=== PATIENT | female | born 1985 | race American Indian/Alaskan Native ===

== ENCOUNTER 2021-01-30 17:42 | Emergency (ER) | payer SELFPAY ==
--- NOTE | 2021-01-30 19:17 | Event Note ---
ED Screening Note Date of service: 01/30/21 Time: 19:15 ED Screening Note: 35-year-old female presents to the emergency room complaining of headache and back pain. Patient states that she was found in her driveway unconscious by a neighbor. Patient reports she has been treated for bronchitis with prednisone Z-Sohan and albuterol inhaler. This initial assessment/diagnostic orders/clinical plan/treatment(s) is/are subject to change based on patients health status, clinical progression and re- assessment by fellow clinical providers in the ED. Further treatment and workup at subsequent clinical providers discretion. Patient/guardian urged not to elope from the ED as their condition may be serious if not clinically assessed and managed. Initial orders include:
[2021-01-30 19:59] LABS: Basophils % (Auto) 0.3 % (0.0-1.8); Eosinophils % (Auto) 0.4 % (0.0-4.3); Hematocrit 34.7 % (30.3-42.9); Hemoglobin 11.7 gm/dl (10.1-14.3); Lymphocytes # (Auto) 1.5 K/mm3 (1.2-5.4); Lymphocytes % (Auto) 18.2 % (13.4-35.0); Mean Corpuscular HGB Conc 34 % (30-34); Mean Corpuscular Volume 88 fl (79-97); Monocytes # (Auto) 0.6 K/mm3 (0.0-0.8); Monocytes % (Auto) 6.8 % (0.0-7.3); Platelet Count 215 K/mm3 (140-440); Red Blood Count 3.93 M/mm3 (3.65-5.03); Red Cell Distribution Width 14.3 % (13.2-15.2)
--- NOTE | 2021-01-30 20:05 | Cat Scan Report ---
CT CHEST WITHOUT CONTRAST INDICATION / CLINICAL INFORMATION: Head pain fall and neck pain. TECHNIQUE: Axial CT images were obtained through the chest without contrast. All CT scans at this location are p erformed using CT dose reduction for ALARA by means of automated exposure control. COMPARISON: None available. FINDINGS: Comparison is of limited diagnostic quality in light of the history of trauma secondary to lack of in travenous contrast HEART: No significant abnormality. THORACIC AORTA: No significant abnormality. MEDIASTINUM and GEETHA: No significant abnormality. LUNGS: No acute air space or interstitial disease. PLEURA: No significant pleural effusion. No pneumothorax. ADDITIONAL FINDINGS: None. UPPER ABDOMEN: No significant abnormality. SKELETAL SYSTEM: No significant abnormality. IMPRESSION: 1. No significant abnormality. Signer Name: Wes Hugo MD Signed: 01/30/2021 8:00 PM Workstation Name: [id number]
--- NOTE | 2021-01-30 20:11 | Cat Scan Report ---
CT head/brain wo con INDICATION / CLINICAL INFORMATION: 35 years Female; Head pain fall. TECHNIQUE: Routine CT head without contrast. All CT scans at this location are performed using CT dos e reduction for ALARA by means of automated exposure control. COMPARISON: None. FINDINGS: BRAIN / INTRACRANIAL CONTENTS: No acute hemorrhage, mass effect, midline shift, hydrocephalus, or acu te, large territorial infarct. No signs of significant atrophy or chronic infarct. No significant whi te matter abnormality seen. CRANIOCERVICAL JUNCTION: No significant abnormality. ORBITS: No significant abnormality of visualized orbits. SINUSES / MASTOIDS: Visualized paranasal sinuses and mastoid air cells are essentially clear. ADDITIONAL FINDINGS: None. IMPRESSION: 1. No focal mass, hemorrhage, hydrocephalus, or acute, large territorial infarct. Signer Name: Luis Miguel Spence MD, III Signed: 01/30/2021 8:06 PM Workstation Name: [id number]3][email or web address]
[2021-01-30 20:14] LABS: Alanine Aminotransferase 104 units/L (7-56); Albumin 4.4 g/dL (3.9-5); BUN/Creatinine Ratio 13; Blood Urea Nitrogen 10 mg/dL (7-17); Calcium 8.6 mg/dL (8.4-10.2); Hemolysis Index 1
[2021-01-30 20:48] LABS: Bacteria,Urine 4+ /HPF (Negative); Bilirubin,Urine NEG (Negative); Blood,Urine NEG (Negative); Color,Urine Yellow (Yellow); Hyaline Casts,Urine 6 /LPF; Mucus,Urine 2+ /HPF; Protein,Urine <15 mg/dL mg/dL (Negative); Urobilinogen,Urine < 2.0 mg/dL (<2.0)
[2021-01-30 20:50] LABS: Amphetamine Screen,Urine Negative; Benzodiazepines Screen,Urine Negative; Cocaine Screen,Urine Negative; Opiate Screen,Urine Negative
[2021-01-30 21:01] LABS: Cannabinoid Screen,Urine Positive; Methadone Screen,Urine Positive
[2021-01-30] MEDS ORDERED: KETOROLAC 30 MG/1 ML INJ IM ONE (21:03)
[2021-01-30] MEDS ORDERED: LIDOCAINE-MPF (1%) 10 MG/1 ML VIAL 5 ML INFILTRATI ONE (21:03)
[2021-01-30] MEDS ORDERED: predniSONE 20 MG TAB PO ONE (21:03)
--- NOTE | 2021-01-30 21:52 | Emergency Department Report ---
ED General Adult HPI - General Chief complaint: Head Injury Stated complaint: DIZZY/DEHYDRATED/LIGHT HEADED Source: patient Mode of arrival: Ambulatory Limitations: No Limitations - History of Present Illness Initial comments: Patient is a 35-year-old white female with a history of chronic iron deficiency anemia who presents to the ED with complaint of acute onset persistent severe low back pain, persistent dry cough with pleuritic chest wall pain, persistent headache and left ear pain for the last 2 days. Patient states that the cough has been persistent and worse especially in the last 24 hours such that prior to arrival in the ED she coughed up so hard that she lost balance and fell down and thought that she had a syncopal episode with no loss of consciousness about 10 hours ago. Patient states that she was recently diagnosed with acute bronchitis by her primary care physician about 24 hours ago and is currently on azithromycin and other cough medications including steroids. Patient denies dizziness, syncope, chest pain, shortness of breath, abdominal pain, dysuria, urinary frequency and urgency, change in vision, loss of consciousness, seizures, numbness and tingling or weakness of lower and upper extremities bilaterally, fever and chills. MD Complaint: Low back pain; pleuritic chest wall pain; dry cough, headache; ear pain -: Sudden, days(s) (3) Location: face, chest, back Radiation: non-radiation Severity scale (0 -10): 10 Quality: aching, sharp Consistency: constant Improves with: none Worsens with: movement Associated Symptoms: denies other symptoms, chest pain (pleuritic chest wall pain), cough (dry), headaches, syncope. denies: confusion, diaphoresis, fever/chills, loss of appetite, malaise, nausea/vomiting, rash, seizure, shortness of breath, weakness, other Treatments Prior to Arrival: none - Related Data Home Medications Medication Instructions Recorded Confirmed Last Taken Methadone HCl [Methadone Intensol] 60 mg PO QDAY 01/30/21 01/30/21 Unknown Previous Rx's Medication Instructions Recorded Last Taken Type Ibuprofen [Motrin] 600 mg PO Q8H PRN #30 tablet 01/30/21 Unknown Rx Ondansetron [Zofran Odt] 4 mg PO Q6HR PRN #15 tab.rapdis 01/30/21 Unknown Rx cephALEXin [Keflex] 500 mg PO Q8HR #30 cap 01/30/21 Unknown Rx Allergies Allergy/AdvReac Type Severity Reaction Status Date / Time iodine AdvReac Anaphylaxis Verified 01/30/21 18:19 ED Review of Systems ROS: Stated complaint: DIZZY/DEHYDRATED/LIGHT HEADED Other details as noted in HPI Constitutional: denies: chills, fever Eyes: denies: eye pain, eye discharge, vision change ENT: ear pain (left ear pain). denies: throat pain Respiratory: cough. denies: shortness of breath, wheezing Cardiovascular: chest pain (Pleuritic chest wall pain). denies: palpitations Endocrine: no symptoms reported Gastrointestinal: denies: abdominal pain, nausea, vomiting, diarrhea Genitourinary: denies: urgency, dysuria, discharge Musculoskeletal: back pain (Low back pain), arthralgia, myalgia. denies: joint swelling Skin: denies: rash, lesions Neurological: headache. denies: weakness, paresthesias Psychiatric: denies: anxiety, depression Hematological/Lymphatic: denies: easy bleeding, easy bruising ED Past Medical Hx - Past Medical History Previous Medical History?: Yes Additional medical history: anemic - 2 transfusions - Surgical History Past Surgical History?: No - Social History Smoking Status: Heavy Tobacco Smoker Substance Use Type: None - Medications Home Medications: Home Medications Medication Instructions Recorded Confirmed Last Taken Type Ibuprofen [Motrin] 600 mg PO Q8H PRN #30 tablet 01/30/21 Unknown Rx Methadone HCl [Methadone Intensol] 60 mg PO QDAY 01/30/21 01/30/21 Unknown History Ondansetron [Zofran Odt] 4 mg PO Q6HR PRN #15 tab.rapdis 01/30/21 Unknown Rx cephALEXin [Keflex] 500 mg PO Q8HR #30 cap 01/30/21 Unknown Rx ED Physical Exam - General Limitations: No Limitations General appearance: alert, in no apparent distress - Head Head exam: Present: atraumatic, normocephalic, normal inspection - Eye Eye exam: Present: normal appearance, PERRL, EOMI Pupils: Present: normal accommodation - ENT ENT exam: Present: normal exam, normal orophraynx, mucous membranes moist, TM's normal bilaterally, normal external ear exam - Neck Neck exam: Present: normal inspection, full ROM - Respiratory Respiratory exam: Present: normal lung sounds bilaterally. Absent: respiratory distress, wheezes, rales, rhonchi, chest wall tenderness, accessory muscle use, prolonged expiratory - Cardiovascular Cardiovascular Exam: Present: normal rhythm, tachycardia, normal heart sounds. Absent: systolic murmur, diastolic murmur, rubs, gallop - GI/Abdominal GI/Abdominal exam: Present: soft, normal bowel sounds. Absent: tenderness, guarding, rebound, hyperactive bowel sounds, hypoactive bowel sounds - Extremities Exam Extremities exam: Present: normal inspection, full ROM, normal capillary refill - Back Exam Back exam: Present: normal inspection, full ROM, tenderness (Palpable l umbosacral paraspinal musculoskeletal tenderness), muscle spasm, paraspinal tenderness - Neurological Exam Neurological exam: Present: alert, oriented X3, CN II-XII intact, normal gait, reflexes normal - Psychiatric Psychiatric exam: Present: normal affect, normal mood, anxious - Skin Skin exam: Present: warm, dry, intact, normal color. Absent: rash ED Course Vital Signs 01/30/21 18:17 Temperature 98.4 F Pulse Rate 101 H Respiratory 20 Rate Blood Pressure 107/77 O2 Sat by Pulse 98 Oximetry ED Medical Decision Making - Lab Data Result diagrams: 01/30/21 19:29 01/30/21 19:29 - Radiology Data Radiology results: report reviewed, [place] [address] Cat Scan Report Signed Patient: JULIO KNOWLES MR#: [id number] : 1985 Acct:[id number] Age/Sex: 35 / F ADM Date: 01/30/21 Loc: ED Attending Dr: Ordering Physician: FAYE RAMOS Date of Service: 01/30/21 Procedure(s): CT head/brain wo con Accession Number(s): [id number] cc: FAYE RAMOS CT head/brain wo con INDICATION / CLINICAL INFORMATION: 35 years Female; Head pain fall. TECHNIQUE: Routine CT head without contrast. All CT scans at this location are performed using CT dose reduction for ALARA by means of automated exposure control. COMPARISON: None. FINDINGS: BRAIN / INTRACRANIAL CONTENTS: No acute hemorrhage, mass effect, midline shift, hydrocephalus, or acute, large territorial infarct. No signs of significant atrophy or chronic infarct. No significant white matter abnormality seen. CRANIOCERVICAL JUNCTION: No significant abnormality. ORBITS: No significant abnormality of visualized orbits. SINUSES / MASTOIDS: Visualized paranasal sinuses and mastoid air cells are essentially clear. ADDITIONAL FINDINGS: None. IMPRESSION: 1. No focal mass, hemorrhage, hydrocephalus, or acute, large territorial infarct. Signer Name: Luis Miguel Spence MD, III Signed: 01/30/2021 8:06 PM Workstation Name: [id number] Transcribed By: HR Dictated By: Luis Miguel Spence MD Electronically Authenticated By: Luis Miguel Spence MD Signed Date/Time: 01/30/212005 DD/ 04 TD/TT: [facility] [address] [place] [address] Cat Scan Report Signed Patient: JULIO KNOWLES MR#: [id number] : 1985 Acct:[id number] Age/Sex: 35 / F ADM Date: 01/30/21 Loc: ED Attending Dr: Ordering Physician: FAYE RAMOS Date of Service: 01/30/21 Procedure(s): CT chest wo con Accession Number(s): [id number] cc: FAYE RAMOS CT CHEST WITHOUT CONTRAST INDICATION / CLINICAL INFORMATION: Head pain fall and neck pain. TECHNIQUE: Axial CT images were obtained through the chest without contrast. All CT scans at this location are performed using CT dose reduction for ALARA by means of automated exposure control. COMPARISON: None available. FINDINGS: Comparison is of limited diagnostic quality in light of the history of trauma secondary to lack of intravenous contrast HEART: No significant abnormality. THORACIC AORTA: No significant abnormality. MEDIASTINUM and GEETHA: No significant abnormality. LUNGS: No acute air space or interstitial disease. PLEURA: No significant pleural effusion. No pneumothorax. ADDITIONAL FINDINGS: None. UPPER ABDOMEN: No significant abnormality. SKELETAL SYSTEM: No significant abnormality. IMPRESSION: 1. No significant abnormality. Signer Name: Wes Hugo MD Signed: 01/30/2021 8:00 PM Workstation Name: [id number] Transcribed By: WG Dictated By: Wes Hugo MD Electronically Authenticated By: Wes Hugo MD Signed Date/Time: 01/30/211999 DD/ 58 TD/TT: Print Cancel Print - Medical Decision Making This is a 35-year-old white female with a history of chronic iron deficiency ane shikha who presents to the ED with complaint of acute onset persistent severe low back pain, persistent dry cough with pleuritic chest wall pain, persistent headache and left ear pain for the last 2 days. Patient states that the cough has been persistent and worse especially in the last 24 hours such that prior to arrival in the ED she coughed up so hard that she lost balance and fell down and thought that she had a syncopal episode with no loss of consciousness about 10 hours ago. Patient states that she was recently diagnosed with acute bronchitis by her primary care physician about 24 hours ago and is currently on azithromycin and other cough medications including steroids. In the ED, patient is alert and oriented x3 and is not in any distress. Lab test results were reviewed and are all nonactionable except for elevated transaminases with AST of 70 and ALT of 104, and significant urinary tract infection in urinalysis. The head CT scan without contrast showed no acute intracranial abnormalities or hemorrhage. The chest CT scan without contrast also showed no acute cardiopulmonary abnormalities or pneumonitis. Patient was treated for pain in the ED and also given Rocephin 1 g intramuscular injection. On reevaluation, patient's pain is well controlled medications. Patient was discharged home on medications including antibiotics and pain medications and was advised to foll ow-up with her primary care physician in 5 to 7 days for reevaluation or return to the ED immediately if symptoms get worse. - Differential Diagnosis Dehydration; pneumonia; bronchitis; muscle spasm; URI; UTI Critical care attestation.: If time is entered above; I have spent that time in minutes in the direct care of this critically ill patient, excluding procedure time. ED Disposition Clinical Impression: Acute urinary tract infection, Acute bilateral low back pain without sciatica, Pleuritic chest pain Acute bronchitis Qualifiers: Bronchitis organism: other organism Qualified Code(s): J20.8 - Acute bronchitis due to other specified organisms Disposition: TO HOME OR SELFCARE Is pt being admited?: No Does the pt Need Aspirin: No Condition: Stable Instructions: Acute Bronchitis (ED), Nonspecific Chest Pain, Adult, [id number], Chest Wall Pain, [id number], Urinary Tract Infection, Adult, [id number], Acute Bronchitis, Adult, [id number] Additional Instructions: All lab test results were reviewed, chest CT scan without contrast showed no acute cardiopulmonary abnormalities or pneumonitis. The head CT scan without contrast also showed no acute intracranial abnormalities or hemorrhage. All lab test results were reviewed and are all nonactionable except for elevated AST of 70 and ALT of 104, and significant urinary tract infection in urinalysis. Therefore take medication with food, drink plenty of fluids and follow-up with your primary care physician in 5 to 7 days for reevaluation. Return to the ED immediately if symptoms get worse. Prescriptions: cephALEXin [Keflex] 500 mg PO Q8HR #30 cap Ibuprofen [Motrin] 600 mg PO Q8H PRN #30 tablet PRN Reason: Pain Ondansetron [Zofran Odt] 4 mg PO Q6HR PRN #15 tab.rapdis PRN Reason: Nausea Referrals: [facility] [Provider Group] - 3-5 Days Time of Disposition: 21:52 Print Language: CANADIAN
[2021-01-30 22:29] VITALS: BP 97/52
--- NOTE | 2021-01-31 09:55 | Electrocardiograph Report ---
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
== END 2021-01-30 22:19 | disposition home or self-care (01) ==
LOC: ED 17:42
DX: N39.0 Urinary tract infection, site not specified (principal); J02.8 Acute pharyngitis due to other specified organisms; R07.89 Other chest pain; F17.200 Nicotine dependence, unspecified, uncomplicated; Z79.899 Other long term (current) drug therapy
CPT/HCPCS: 36415; 70450; 71250; 80053; 80307; 81001; 84702; 85025; 87086; 93005; 96372; 99284; J0696; J1885; J7512